=== PATIENT | female | born 1955 | race Caucasian/White ===

== ENCOUNTER 2016-12-04 14:01 | Emergency (ER) | payer OTHER ==
[2016-12-04 14:12] VITALS: BMI 29.9
--- NOTE | 2016-12-04 14:40 | PDOC ---
History of Present Illness - General History Source: Patient Exam Limitations: No Limitations - History of Present Illness Initial Comments: 12/04/16 15:20 The patient is a 74 year old female with a significant past medical history of diabetes and HTN who presents to the ED with bruise to the back of the head s/ p fall 2 days ago. Patient notes that she has a bump and tenderness on the back of her head since her fall 2 days ago. Patient also notes that her blood sugar is reading high on her machine at home. She reports that she did not take her Levemir. She denies fever, chills, cough, nausea, vomiting, diarrhea or constipation. She denies LOC. <Aracelis Gonzáles - Last Filed: 12/04/16 15:20> <Morales Tom - Last Filed: 12/04/16 19:07> - General Chief Complaint: Pain Stated Complaint: FALL, HEADACHE Time Seen by Provider: 12/04/16 14:39 Past History <Aracelis Gonzáles - Last Filed: 12/04/16 15:20> - Past Medical History Diabetes: Yes Hypercholesterolemia: Yes - Psycho/Social/Smoking Cessation Hx Anxiety: No Suicidal Ideation: No Smoking History: Never smoked Information on smoking cessation initiated: No Hx Alcohol Use: No <Morales Tom - Last Filed: 12/04/16 19:07> - Past Medical History Allergies/Adverse Reactions: Allergies Allergy/AdvReac Type Severity Reaction Status Date / Time No Known Allergies Allergy Verified 12/04/16 14:12 Home Medications: Ambulatory Orders Insulin (Levemir) [Levemir Vial] 32 unit SQ BID 12/04/16 Metformin HCl [Glucophage] 1,000 mg PO BID 12/04/16 Review of Systems - Review of Systems Able to Perform ROS?: Yes Comments:: 12/04/16 15:24 GENERAL/CONSTITUTIONAL: No fever or chills. No weakness. HEAD, EYES, EARS, NOSE AND THROAT: +small contusion to the occipital region. No change in vision. No ear pain or discharge. No sore throat. CARDIOVASCULAR: No chest pain or shortness of breath. RESPIRATORY: No cough, wheezing, or hemoptysis. GASTROINTESTINAL: No nausea, vomiting, diarrhea or constipation. GENITOURINARY: No dysuria, frequency, or change in urination. MUSCULOSKELETAL: No joint or muscle swelling or pain. No neck or back pain. SKIN:No rash NEUROLOGIC: No headache, vertigo, loss of consciousness, or change in strength/ sensation. ENDOCRINE: No increased thirst. No abnormal weight change. HEMATOLOGIC/LYMPHATIC: No anemia, easy bleeding, or history of blood clots. ALLERGIC/IMMUNOLOGIC: No hives or skin allergy. <Aracelis Gonzáles - Last Filed: 12/04/16 15:20> *Physical Exam - Vital Signs Last Vital Signs Temp Pulse Resp BP Pulse Ox 97.8 F 93 H 18 125/78 97 12/04/16 14:06 12/04/16 14:06 12/04/16 14:06 12/04/16 14:06 12/04/16 14:06 - Physical Exam Comments: 12/04/16 15:25 GENERAL: Awake, alert, and fully oriented, in no acute distress HEAD: +small contusion to the occipital region with tenderness upon deep palpation. EYES: PERRLA, EOMI, sclera anicteric, conjunctiva clear ENT: Auricles normal inspection, hearing grossly normal, nares patent, oropharynx clear without exudates. Moist mucosa NECK: Normal ROM, supple, no lymphadenopathy, JVD, or masses LUNGS: Breath sounds equal, clear to auscultation bilaterally. No wheezes, and no crackles HEART: Regular rate and rhythm, normal S1 and S2, no murmurs, rubs or gallops ABDOMEN: Soft, nontender, normoactive bowel sounds. No guarding, no rebound. No masses EXTREMITIES: Normal range of motion, no edema. No clubbing or cyanosis. No cords, erythema, or tenderness NEUROLOGICAL: Cranial nerves II through XII grossly intact. Normal speech, normal gait SKIN: Warm, Dry, normal turgor, no rashes or lesions noted. <Aracelis Gonzáles - Last Filed: 12/04/16 15:20> - Vital Signs Last Vital Signs Temp Pulse Resp BP Pulse Ox 97.8 F 93 H 18 125/78 97 12/04/16 14:06 12/04/16 14:06 12/04/16 14:06 12/04/16 14:06 12/04/16 14:06 <Morales Tom - Last Filed: 12/04/16 19:07> ED Treatment Course - LABORATORY CBC & Chemistry Diagram: 12/04/16 15:30 12/04/16 15:30 <Morales Tom - Last Filed: 12/04/16 19:07> Medical Decision Making - Medical Decision Making 12/04/16 15:25 Patient is a 61 year old female with pmhx of diabetes and htn who presents to the ED with small bruise to the back of the head and high blood sugar. Will order CT scan and labs. <Aracelis Gonzáles - Last Filed: 12/04/16 15:20> *DC/Admit/Observation/Transfer - Attestations Scribe Attestion: 12/04/16 15:28 Documentation prepared by AVI Villalobos, acting as medical liaison for Morales Tom MD/. <Aracelis Gonzáles - Last Filed: 12/04/16 15:20> - Discharge Dispostion Admit: No - Attestations Physician Attestion: 12/04/16 14:39 I, Dr. Morales Tom, attest that this document has been prepared under my direction and personally reviewed by me in its entirety. I further attest, that it accurately reflects all work, treatment, procedures and medical decision -making performed by me. <Morales Tom - Last Filed: 12/04/16 19:07> Diagnosis at time of Disposition: Poorly controlled diabetes mellitus Hematoma of scalp Qualifiers: Encounter type: initial encounter Qualified Code(s): S00.03XA - Contusion of scalp, initial encounter Closed head injury Qualifiers: Encounter type: initial encounter Qualified Code(s): S09.90XA - Unspecified injury of head, initial encounter - Discharge Dispostion Disposition: HOME Condition at time of disposition: Good - Referrals Referrals: Dolly Moffett MD [Primary Care Provider] - - Patient Instructions Printed Discharge Instructions: DI for Closed Head Injury, Type 2 Diabetes Additional Instructions: Colette- Sorry this happened to you. Check your sugars frequently, watch your diet, take your medicines, follow up with your doctor later this week. Return to us if worse. Motrin and an Ice Pack will control your pain. Best- Dr. Morales Tom
[2016-12-04] MEDS ORDERED: ONDANSETRON 4 MG/2 ML VIAL ONE (15:15)
[2016-12-04] MEDS ORDERED: KETOROLAC TROMETHAMINE 30 MG/1 ML VIAL ONE (15:15)
[2016-12-04] MEDS ORDERED: METOCLOPRAMIDE HCL INJECTION 10 MG/2 ML VIAL ONE (15:15)
[2016-12-04] MEDS ORDERED: ONDANSETRON 4 MG/2 ML VIAL IVPUSH ONE (15:21)
[2016-12-04] MEDS ORDERED: KETOROLAC TROMETHAMINE 30 MG/1 ML VIAL IVPUSH ONE (15:21)
[2016-12-04] MEDS ORDERED: METOCLOPRAMIDE HCL INJECTION 10 MG/2 ML VIAL IVPUSH ONE (15:21)
[2016-12-04] MEDS ORDERED: SODIUM CHLORIDE 1,000 ML IV ONE (15:37)
[2016-12-04 15:50] LABS: BASOPHIL 0.9 % (0-2.0); MCH 29.6 pg (25.7-33.7); MEAN CELL VOLUME 86.9 fl (80-96); MEAN PLT VOLUME 12.7 fl (7.5-11.1); NEUTROPHILS 66.4 % (42.8-82.8); PLATELET COUNT 146 K/MM3 (134-434); RDW 12.8 % (11.6-15.6); WHITE BLOOD COUNT 10.5 K/mm3 (4.0-10.0)
[2016-12-04 16:03] LABS: INR 0.99 (0.82-1.09); PROTHROMBIN TIME (PATIENT) 10.9 SEC (9.98-11.88)
[2016-12-04 16:14] LABS: ALBUMIN 3.6 g/dl (3.4-5.0); ANION GAP 10 (8-16); BILIRUBIN,TOTAL 0.6 mg/dL (0.2-1.0); CALCIUM 9.7 mg/dL (8.5-10.1); CO2 28 mmol/L (21-32); CREATININE 0.8 mg/dL (0.55-1.02); SGOT/AST 13 U/L (15-37); SGPT/ALT 22 U/L (12-78); TOT PROT 7.2 g/dl (6.4-8.2)
[2016-12-04 16:15] LABS: ALK PHOS 151 U/L (45-117)
[2016-12-04 16:23] LABS: GLUCOSE,RANDOM 432 mg/dL (74-106)
[2016-12-04] MEDS ORDERED: SODIUM CHLORIDE 1,000 ML IV STA (17:20)
[2016-12-04 18:00] VITALS: BP 111/74; PULSE 76; TEMP 97.4
== END 2016-12-04 19:14 | disposition home or self-care (01) ==
LOC: JER 14:01
PROC: 3E0337Z Introduction of Electrolytic and Water Balance Substance into Peripheral Vein, Percutaneous Approach (ICD-10-PCS; principal; 2016-12-04)
PROC: 3E0333Z Introduction of Anti-inflammatory into Peripheral Vein, Percutaneous Approach (ICD-10-PCS; 2016-12-04)
PROC: 3E033GC Introduction of Other Therapeutic Substance into Peripheral Vein, Percutaneous Approach (ICD-10-PCS; 2016-12-04)
DX: S00.03XA Contusion of scalp, initial encounter (principal); W18.39XA Other fall on same level, initial encounter; Y93.89 Activity, other specified; Y92.039 Unspecified place in apartment as the place of occurrence of the external cause; E11.69 Type 2 diabetes mellitus with other specified complication; Z79.4 Long term (current) use of insulin; Z79.84 Long term (current) use of oral hypoglycemic drugs; I10 Essential (primary) hypertension; E78.00 Pure hypercholesterolemia, unspecified
CPT/HCPCS: 36415; 70450-TC; 80053; 82009; 83690; 85025; 85610; 96361; 96374; 96375; 99282-25